=== PATIENT | female | born 1965 | race Caucasian/White ===

== ENCOUNTER 2021-11-09 11:49 | Outpatient (CLI) | payer SELFPAY ==
--- NOTE | 2021-11-09 12:04 | XR_ITS ---
WS: [id number] RIGHT SHOULDER: 2 VIEW(S) TECHNIQUE: Internal and external rotation. HISTORY: ACUTE PAIN OF R SHOULDER COMPARISON: None. No fracture or dislocation or soft tissue abnormality. Mild AC joint narrowing. Similar to the prior study with a a few small erosions at the joint surface. XR/XR shoulder RT min 2V* [id number] IMPRESSION: Mild AC joint osteoarthritis. No fracture.
== END 2021-11-09 11:50 | disposition home or self-care (01) ==
LOC: RAD 11:53
PROVIDERS: Family Provider Nurse Practitioner Family; PCP Nurse Practitioner Family; Visit Provider Nurse Practitioner Family
DX: M19.011 Primary osteoarthritis, right shoulder (principal)
CPT/HCPCS: 73030

== ENCOUNTER → 2022-02-21 08:58 | Outpatient (BNVA) | payer SELFPAY | PROVIDERS: Family Provider Nurse Practitioner Family; PCP Nurse Practitioner Family; Visit Provider Specialist | DX: M67.911 Unspecified disorder of synovium and tendon, right shoulder (principal) | CPT/HCPCS: 73030 ==

== ENCOUNTER 2022-10-17 09:00 | Outpatient (CLI) | payer OTHER, SELFPAY ==
--- NOTE | 2022-10-17 09:18 | MM_ITS ---
WS: [id number] BILATERAL SCREENING DIGITAL TOMOSYNTHESIS MAMMOGRAM WITH CAD HISTORY: SCREENING COMPARISON: None available. Bilateral CC and MLO views with tomosynthesis and synthetic mammography submitted. Computer aided det ection analyzed. Breast composition: There are scattered areas of fibroglandular density. No suspicious masses, microc alcifications or architectural distortion. MM/[place] [id number] IMPRESSION: BI-RADS: 1-Negative FOLLOW UP: 1 Year Follow-up
== END 2022-10-17 09:01 | disposition home or self-care (01) ==
LOC: RAD 09:07
PROVIDERS: PCP Nurse Practitioner Family; Visit Provider Nurse Practitioner Family
DX: Z12.31 Encounter for screening mammogram for malignant neoplasm of breast (principal)
CPT/HCPCS: 77063; 77067

== ENCOUNTER → 2022-12-28 08:45 | Outpatient (BNVA) | payer OTHER, SELFPAY | PROVIDERS: PCP Nurse Practitioner Family; Visit Provider Specialist | DX: M67.911 Unspecified disorder of synovium and tendon, right shoulder (principal) | CPT/HCPCS: 73030 ==

== ENCOUNTER 2024-09-23 10:30 | Emergency (ER) | payer OTHER, SELFPAY ==
--- NOTE | 2024-09-23 10:32 | XR_ITS ---
WS: [id number] Exam: XR chest 1V portable [id number] Date/Time of Exam: 09/23/2024 10:49 AM Reason For Exam: sob No priors. Lungs are fully expanded and clear. Cardiomediastinal silhouette is unremarkable for technique. No pleural effusions. Mild plaque atelectasis in the lower lung zones. Bony structures are intact. XR/XR chest 1V portable [id number] IMPRESSION: 1. No acute cardiopulmonary finding.
[2024-09-23 10:33] VITALS: BP 139/51; PULSE 81; TEMP 36.7; O2SAT 98; BMI 35.2
--- NOTE | 2024-09-23 10:33 | ECG_ITS ---
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 Measurements Intervals [place] Rate: 75 P: 19 WA: 181 QRS: 78 QRSD: 94 T: 42 QT: 400 QTc: 450 Interpretive Statements SINUS RHYTHM No previous ECG available for comparison Electronically Signed On 09-23-2024 14:58:28 CDT by Julián Dow M.D. [email or web address]
--- NOTE | 2024-09-23 10:52 | ED_ITS ---
HPI - SOB/Dyspnea 2 General: Chief Complaint: Shortness of Breath/Dyspnea Stated Complaint: sob Time Seen by Provider: 09/23/24 10:46 Source: patient Mode of arrival: ambulatory Limitations: no limitations History of Present Illness: HPI Narrative: 59-year-old female who states that she h as been having some generalized weakness along with shortness of breath been going on for the last few days. She denies any cough or fever has history of heart disease denies any history of blood clots. She denies any chest pain. Does have worsening with exertion has had some congestion feels like she has been having allergies. Associated symptoms: Deny abdominal pain, chest pain, fever(s), nausea or vomiting Related Data Home Medications ?Medication ?Instructions ?Recorded ?Confirmed desvenlafaxine succinate 25 mg 25 mg PO DAILY 03/04/24 09/23/24 tablet,extended release 24 hr (Pristiq) olmesartan 20 mg tablet 10 mg PO DAILY 09/23/2409/12 Previous Rx's ?Medication ?Instructions ?Recorded furosemide 20 mg tablet (Lasix) 20 mg PO DAILY #30 tab s 09/23/24 Allergies Allergy/AdvReac Type Severity Reaction Status Date / Time No Known Allergies Allergy Verified 09/23/24 10:46 Review of Systems 2 Const: Denies: fever(s), chills, body aches or change in appetite ENMT: Denies: throat pain or dental pain Card: Denies: chest pain Resp: Reports: dyspnea GI: Denies: abdominal pain, nausea, vomiting or diarrhea Musc: Denies: neck pain or back pain Skin/Breast: Denies: rash Neuro: Denies: headache(s) PFS ED 2 PFSH: Medical History Essential hypertension Depression Hypothyroidism Hyperlipidemia GERD (gastroesophageal reflux disease) Coronary artery disease Surgical History History of coronary artery stent placement Family History Grandmother Congestive heart failure (CHF) Mother CAD (coronary artery disease) Stroke Brother CAD (coronary artery disease) Mother Diabetes Father Diabetes Social History Smoking and tobacco/nicotine status: former use of tobacco/nicotine Alcohol intake: current Alcohol intake frequency: holidays/special occasions only Substance/Drug Use: never Physical Exam 2 Const: COMMON NORMALS: no acute distress, patient oriented x3 and healthy appearing HENMT: COMMON NORMALS: normocephalic and atraumatic HEAD & SCALP: n ormocephalic and atraumatic Eye: COMMON NORMALS: conjunctivae normal CONJUNCTIVA: Yes conjunctivae normal Neck/C-Spine: COMMON NORMALS: full ROM and supple Chest: COMMONS NORMALS: normal inspection of the chest and normal palpation of entire chest wall Resp: COMMON NORMALS: normal respiratory effort, No retractions, No use of accessory muscles and clear to auscultation bilaterally AUSCULTATION: clear to auscultation bilaterally Cardio: COMMON NORMALS: regular rate, regular rhythm and No murmurs present (Cardio) RATE: regular rate RHYTHM: regular rhythm Extremity: COMMON NORMALS: normal to inspection and full ROM Neuro: COMMON NORMALS: patient oriented x3, moves all extremities and no focal motor deficits Psych: COMMON NORMALS: mental status grossly normal, Normal thought process present and cooperative THOUGHT PROCESS: Normal thought process present Skin: COMMON NORMALS: no rashes or lesions noted and no wounds GENERAL SKIN EXAM: no rashes or lesions noted Course 2 Vital Signs: Vital signs: Vital Signs Temperature 98.0 F 09/23/24 10:33 Pulse Rate 81 09/23/24 10:33 Blood Pressure 139/51 09/23/24 10:33 Pulse Oximetry 98 09/23/24 10:33 Oxygen Delivery Me thod Room Air 09/23/24 10:33 MDM - SOB/Dyspnea Medical Decision Making Patient presents here with shortness of breath D-dimer here is normal x-ray shows no pneumonia troponins negative she has had no chest pain no signs of ACS has a mildly elevated BNP states she felt like she has had some swelling we will start on low-dose Lasix she is follow-up with PCP and return if worsening. Medical Records I reviewed the patient's medical records. Lab Data I reviewed the patient's lab results. 09/23/24 10:59 09/23/24 10:59 Labs/Radiology: Radiology Impressions Chest X-Ray 09/23/24 10:32 IMPRESSION: 1. No acute cardiopulmonary finding. Laboratory Results WBC 8.83 10^3/uL (3.29-11.43) 09/23/24 10:59 RBC 3.89 10^6/uL (3.85-5.65) 09/23/24 10:59 Hgb 11.00 g/dL (11.27-16.99) L 09/23/24 10:59 Hct 34.7 % (36-47) L 09/23/24 10:59 MCV 89.2 fl (85-98) 09/23/24 10:59 MCH 28.3 pg (27-33) 09/23/24 10:59 MCHC 31.7 g/dL (30-55) 09/23/24 10:59 RDW 14.1 % (12.1-15.1) 09/23/24 10:59 Plt Count 286 10^3/cmm (157-399) 09/23/24 10:59 MPV 10.0 fL (7.4-10.4) 09/23/24 10:59 Neut % (Auto) 68.7 % 09/23/24 10:59 Lymph % (Auto) 23.6 % 09/23/24 10:59 [place] % (Auto) 5.1 % 09/23/24 10:59 Eos % (Auto) 1.8 % 09/23/24 10:59 Baso % (Auto) 0.5 % 09/23/24 10:59 Neut # (Auto) 6.07 10^3/uL (1.8-7.7) 09/23/24 10:59 Lymph # (Auto) 2.1 10^3/uL (0.8-4.8) 09/23/24 10:59 [place] # (Auto) 0.5 10^3/uL (0.2-0.9) 09/23/24 10:59 Eos # (Auto) 0.2 10^3/uL (0.0-0.8) 09/23/24 10:59 Baso # (Auto) 0.0 10^3/uL (0.0-0.1) 09/23/24 10:59 Nucleated RBC % (auto) 0 % 09/23/24 10:59 Nucleated RBCs # 0.0 /100WBC 09/23/24 10:59 D-Dimer 0.57 ug/mLFEU (0-0.59) 09/23/24 10:59 Sodium 142 mmol/L (136-145) 09/23/24 10:59 Potassium 4.2 mmol/L (3.5-5.1) 09/23/24 10:59 Chloride 106 mmol/L (98-107) 09/23/24 10:59 Carbon Dioxide 24 mmol/L (22-29) 09/23/24 10:59 Anion Gap 16.2 (5-19) 09/23/24 10:59 BUN 13 mg/dL (6-20) 09/23/24 10:59 Creatinine 0.6 mg/dL (0.5-0.9) 09/23/24 10:59 GFR Calculation 102.3 mL/min (90-130) 09/23/24 10:59 Glucose 102 mg/dL (65-115) 09/23/24 10:59 Calculated Osmolality 294 mOsm/kg (285-295) 09/23/24 10:59 Calcium 9.4 mg/dL (8.5-10.5) 09/23/24 10:59 Total Bilirubin 0.5 mg/dL (0.15-1.2) 09/23/24 10:59 AST 15 U/L (0-32) 09/23/24 10:59 ALT 20 U/L (0-33) 09/23/24 10:59 Alkaline Phosphatase 105 U/L (35-105) 09/23/24 10:59 Troponin T Baseline 9 ng/L (0-10) 09/23/24 10:59 NT-Pro-B Natriuret Pep 1415 pg/mL (0-125) H 09/23/24 10:59 Total Protein 6.5 g/dL (6.6-8.7) L 09/23/24 10:59 Albumin 4.1 g/dL (3.5-5.2) 09/23/24 10:59 Globulin 2.4 g/dL (1.3-4.6) 09/23/24 10:59 All radiology interpretation(s) finalized by discharge EKG Data EKG 1: I personally reviewed and interpreted this EKG as follows: EKG Interpretation Date: 09/23/24 EKG interpretation time: 10:41 Interpretation: nsr hr [address] or t wave abnormalities qrs 94 qtc 430 Discharge Plan Discharge Patient Disposition: Home Clinical Impression: Shortness of breath Condition: Stable Prescriptions: New furosemide [Lasix] 20 mg tablet 20 mg PO DAILY Qty: 30 0RF No Action desvenlafaxine succinate [Pristiq] 25 mg tablet extended release 24 hr 25 mg PO DAILY olmesartan 20 mg tablet 10 mg PO DAILY Discharge Orders: Discharge ED (Routine); Ordered 09/23/24 Ordered By: Sandoval Rangel Referrals: Clark,ANDRES AlbaN [Primary Care Provider, Nurse Practitioner] - 4-7 days Discharge Diet: Advance as tolerated Discharge Activity: Resume usual activity Patient Instructions: Dyspnea (ED) Print Language: Hungarian Coding Level of Care Code ED Finish Filer for Jocelynn Carlos
[2024-09-23 11:10] LABS: Basophils % 0.5 %; Eosinophils # 0.2 10^3/uL (0.0-0.8); Eosinophils % 1.8 %; Hematocrit 34.7 % (36-47); Lymphocytes # 2.1 10^3/uL (0.8-4.8); Lymphocytes % 23.6 %; Mean Corpuscular HGB Conc 31.7 g/dL (30-55); Mean Corpuscular Hemoglobin 28.3 pg (27-33); Mean Corpuscular Volume 89.2 fl (85-98); Monocytes # 0.5 10^3/uL (0.2-0.9); Monocytes % 5.1 %; Neutrophils # 6.07 10^3/uL (1.8-7.7); Neutrophils % 68.7 %; Nucleated Red Blood Cells % 0 %; Platelet Count 286 10^3/cmm (157-399); Red Blood Count 3.89 10^6/uL (3.85-5.65); Red Cell Distribution Width 14.1 % (12.1-15.1); White Blood Count 8.83 10^3/uL (3.29-11.43)
[2024-09-23 11:22] LABS: D Dimer 0.57 ug/mLFEU (0-0.59)
[2024-09-23 11:27] LABS: Troponin(5th) Baseline 9 ng/L (0-10)
[2024-09-23 11:36] LABS: Alanine Aminotransferase 20 U/L (0-33); Albumin Level 4.1 g/dL (3.5-5.2); Alkaline Phosphatase 105 U/L (35-105); Anion Gap 16.2 (5-19); Aspartate Amino Transferase 15 U/L (0-32); Blood Urea Nitrogen 13 mg/dL (6-20); Calcium 9.4 mg/dL (8.5-10.5); Carbon Dioxide 24 mmol/L (22-29); Chloride 106 mmol/L (98-107); Creatinine Clr Calc Pharmacy 115.8095; Globulin 2.4 g/dL (1.3-4.6); Glomerular Filtration Rate 102.3 mL/min (90-130); Glucose 102 mg/dL (65-115); NT Pro B Type Natriuretic Pept 1415 pg/mL (0-125); Osmolality Calculated 294 mOsm/kg (285-295); Potassium 4.2 mmol/L (3.5-5.1); Sodium 142 mmol/L (136-145); Total Bilirubin 0.5 mg/dL (0.15-1.2); Total Protein 6.5 g/dL (6.6-8.7)
[2024-09-23 12:11] VITALS: BP 150/61; PULSE 77; RESP 16; O2SAT 96
[2024-09-23] MEDS: dexamethasone 10 mg/mL INJ IVP (12:11)
== END 2024-09-23 12:10 | disposition home or self-care (01) ==
PROVIDERS: Emergency Provider Emergency Medicine; PCP Nurse Practitioner Family
DX: R06.02 Shortness of breath (principal); Z87.891 Personal history of nicotine dependence; E78.5 Hyperlipidemia, unspecified; I10 Essential (primary) hypertension; I25.10 Atherosclerotic heart disease of native coronary artery without angina pectoris
CPT/HCPCS: 36415; 71045; 80053; 83880; 84484; 85025; 85378; 93005; 96374; 99285; J1100

== ENCOUNTER 2024-10-01 20:00 | Outpatient (CLI) | payer OTHER, SELFPAY | END 2024-10-01 20:01 | disposition home or self-care (01) | LOC: SLEEP 23:12 | PROVIDERS: PCP Nurse Practitioner Family; Referring Provider Nurse Practitioner Family; Visit Provider Internal Medicine Pulmonary Disease | DX: G47.33 Obstructive sleep apnea (adult) (pediatric) (principal) | CPT/HCPCS: 95810 ==

== ENCOUNTER 2024-11-12 12:26 | Outpatient (CLI) | payer OTHER, SELFPAY ==
[2024-11-12 12:31] VITALS: BMI 34.1
--- NOTE | 2024-11-12 12:32 | ECG_ITS ---
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 Interpretive Statements EXERCISE STRESS TEST EXERCISE DATA: The patient was exercised by Quinn protocol. Baseline heart rate was 83 beats per minute. Baseline blood pressure was 128/51 millimeters of mercury. Maximal predicted heart rate was 161 beats per minute. Maximum heart rate achieved was 137 which was 85% of the maximum predicted heart rate. Maximum blood pressure was 197/40 millimeters of mercury. Total exercise time was 5 minutes and 3 seconds. Maximum METs achieved was 7. The reason for ending the test was maximal effort achieved. The patient complained of shortness of breath during the stress test, which then resolved at the end of the test. ELECTROCARDIOGRAM: BASELINE: Showed sinus rhythm, normal axis, no significant ST-T changes at the baseline noted. [] EXERCISE: At the peak exercise level, [] baseline artifact is significant and can not rule out ischemia. RECOVERY: During the recovery period, heart rate dropped appropriately. No significant ST-T changes in the recovery suggestive of ischemia noted. [] CONCLUSION: 1. Exercise capacity is fair 2. Heart rate response was appropriate 3. Blood pressure response was appropriate 4. Symptoms not suggestive of ischemia. 5. Electrocardiogram portion of the stress test was non-diagnostic 6. Echo portion of stress test will be reported separately Electronically Signed On 11-18-2024 12:30:39 CDT by Papito Calhoun M.D. [email or web address]
--- NOTE | 2024-11-12 12:32 | USCV_ITS ---
Stress Echo Maria Ines Granados Age: 59 Gender: F : 1965 Exam Date: 11/12/2024 12:55 Ordering Phys: Ana Hopkins NP Technologist: Exam Location: [facility] [place] Indication: SOB Rhythm: Sinus Patient History: RCA stent 2020, HTN, Former Smoker, Hyperlipidemia Cardiac Medications: Olmesartan 20mg daily Medications in past 24 hours: yes Contrast: Stress Results Protocol: Quinn Total dose(mL): Exercise Duration (min:sec): 5:03 METS: 7.0 Resting HR: 85 Resting BP: 128 / 51 Peak HR: 137 Peak BP: 197 / 74 Max Predicted HR: 161 85 % Max Predicted HR Target HR: 137 Double Product: [id number] Stress Summary: The patient's target heart rate was achieved BP Response: Normal Reason for Termination: Excessive shortness of breath, Maximal effort/unable to continue, General/leg fatigue, Test terminated after reaching target heart rate (85% max predicted) Cardiac Symptoms: Shortness of breath ECG Analysis Resting ECG: Normal sinus rhythm with no significant ST-T wave changes. Stress ECG: Nondiagnostic exercise stress EKG secondary to baseline artifact Arrhythmia: None MEASUREMENTS (Male/Female) Normal Values FINDINGS At baseline LV systolic function is normal with EF of 50 to 55%. No regional wall abnormalities are seen. Although patient did reach target heart rate, images were obtained at significantly lower heart rates than the target heart rate. Target heart rate was 137 bpm. Images obtained at peak heart rate of 121 bpm. This reduces the sensitivity of the test. At this heart rate no significant ST-T wave changes seen CONCLUSIONS 1. Non-diagnostic stress test secondary to images obtained at significantly lower heart rate and target heart rate. Alternative testing is suggested to rule out ischemia 2. Baseline LV systolic function is normal. Papito Calhoun MD (Electronically Signed) Final Date: 18 November 2024 12:34 S
[2024-11-12 13:16] VITALS: BP 140/56; PULSE 82
== END 2024-11-12 12:27 | disposition home or self-care (01) ==
PROVIDERS: PCP Nurse Practitioner Family; Visit Provider Nurse Practitioner Family
DX: R06.02 Shortness of breath (principal)
CPT/HCPCS: 93017; 93350

== ENCOUNTER 2024-11-19 11:03 | Outpatient (CLI) | payer OTHER, SELFPAY ==
--- NOTE | 2024-11-19 11:00 | MM_ITS ---
WS: [id number] BILATERAL 3D TOMOSYNTHESIS DIGITAL SCREENING MAMMOGRAPHY WITH CAD CLINICAL INFORMATION: SCREENING HISTORY: Screening mammogram. No current complaints. COMPARISON: 2022 TECHNIQUE: Bilateral CC and MLO views. FINDINGS: Scattered fibroglandular densities bilaterally. No suspicious focal mass, asymmetry, calcifications, or architectural distortion. No evidence of malignancy. MM/MM scr BI tomosynthesis [id number] IMPRESSION: DENSITY: There are scattered areas of fibroglandular density. BI-RADS: 1 - Negative. FOLLOW UP: 1 Year Follow-up Recommend return to annual screening mammography.
== END 2024-11-19 11:04 | disposition home or self-care (01) ==
PROVIDERS: PCP Nurse Practitioner Family; Visit Provider Nurse Practitioner Family
DX: Z12.31 Encounter for screening mammogram for malignant neoplasm of breast (principal); R92.323 Mammographic fibroglandular density, bilateral breasts
CPT/HCPCS: 77063; 77067

== ENCOUNTER → 2024-12-09 10:31 | Outpatient (BNVA) | payer OTHER, SELFPAY | PROVIDERS: PCP Nurse Practitioner Family; Referring Provider Nurse Practitioner Family; Visit Provider Obstetrics & Gynecology | DX: Z12.4 Encounter for screening for malignant neoplasm of cervix (principal); R35.0 Frequency of micturition | CPT/HCPCS: 81000; 87086; 87624 ==

== ENCOUNTER 2024-12-10 20:10 | Outpatient (CLI) | payer OTHER, SELFPAY | END 2024-12-10 20:11 | disposition home or self-care (01) | LOC: SLEEP 20:13 | PROVIDERS: PCP Nurse Practitioner Family; Referring Provider Nurse Practitioner Family; Visit Provider Internal Medicine Pulmonary Disease | DX: G47.33 Obstructive sleep apnea (adult) (pediatric) (principal) | CPT/HCPCS: 95811 ==